=== PATIENT | male | born 1940 | race Two or more races ===

== ENCOUNTER 2019-12-16 10:30 | Outpatient (CLI) | payer MEDICARE ==
[~2019-12-16 10:30] MED LIST: NONE PER PT
[2019-12-16] MEDS ORDERED: REGADENOSON 0.4 MG/5 ML SYRINGE ONE (12:42)
== END 2019-12-16 23:59 | disposition home or self-care (01) ==
LOC: CVU 10:30 → RAD 23:59
PROVIDERS: ATTEND Internal Medicine Clinical Cardiac Electrophysiology
DX: I08.0 Rheumatic disorders of both mitral and aortic valves (principal); Z01.810 Encounter for preprocedural cardiovascular examination; R01.1 Cardiac murmur, unspecified; I10 Essential (primary) hypertension
CPT/HCPCS: 93306; 93356; J2785

== ENCOUNTER → 2020-03-01 | Outpatient (CLI) | payer MEDICARE | END | disposition home or self-care (01) | LOC: CFH 08:23 | PROVIDERS: ATTEND Nurse Practitioner | DX: M12.871 Other specific arthropathies, not elsewhere classified, right ankle and foot (principal); M25.571 Pain in right ankle and joints of right foot ==

== ENCOUNTER → 2020-03-31 | Outpatient (CLI) | payer MEDICARE ==
[~2020-03-31] MED LIST changes: +B CO1TAB14 PO; +GUAI-103 PO; +IRON18TA PO; +MAGN500C9 PO; +METF500T17 PO; +MULT-717 PO; +TURM500C4 PO
[2020-03-31 09:39] LABS: ALANINE AMINOTRANSFERASE 26 U/L (12-78); ALBUMIN 3.7 g/dL (3.4-5.0); ANION GAP 6 mmol/L (5-15); CALCIUM 8.9 mg/dL (8.5-10.1); CHLORIDE 108 mmol/L (98-107); CREATININE 0.81 mg/dL (0.7-1.3)
[2020-03-31 09:42] LABS: ALKALINE PHOSPHATASE 76 U/L (45-117); BILIRUBIN,TOTAL 0.6 mg/dL (0.2-1.0); TOTAL PROTEIN 7.4 g/dL (6.4-8.2)
== END | disposition home or self-care (01) ==
LOC: STAR 07:59
PROVIDERS: ATTEND Orthopaedic Surgery Foot and Ankle Surgery
DX: Z01.812 Encounter for preprocedural laboratory examination (principal); Z20.828 Contact with and (suspected) exposure to other viral communicable diseases; M25.571 Pain in right ankle and joints of right foot; M12.871 Other specific arthropathies, not elsewhere classified, right ankle and foot; R94.31 Abnormal electrocardiogram [ECG] [EKG]
CPT/HCPCS: 80053; 87635; 93005

== ENCOUNTER 2020-04-06 06:02 | Day surgery (SDC) | payer MEDICARE ==
[~2020-04-06] VITALS: Ht 177.8 cm; Wt 102.1 kg
[2020-04-06] MEDS ORDERED: CHLORHEXIDINE 15 ML UDC MM ONE (07:00)
[2020-04-06] MEDS ORDERED: LACTATED RINGERS 1,000 ML IV SCH (07:00)
[2020-04-06] MEDS ORDERED: OXYcodone 5 MG/5 ML ORAL.SOL UDC PO PRN (07:00)
[2020-04-06] MEDS ORDERED: LABETALOL 5MG/ML, 20ML IV PRN (07:00)
[2020-04-06] MEDS ORDERED: FENTANYL PF 100 MCG/2ML IV PRN (07:00)
[2020-04-06] MEDS ORDERED: PROMETHAZINE 25 MG/ML, 1ML IVPush PRN (07:00)
[2020-04-06] MEDS ORDERED: LIDOCAINE-MPF 1%, 2ML INFIL ONE (07:00)
[2020-04-06] MEDS ORDERED: EPHEDRINE 50 MG/ML, 1ML IVPush PRN (07:00)
[2020-04-06] MEDS ORDERED: ONDANSETRON 2MG/ML, 2ML IVPush PRN (07:00)
[2020-04-06] MEDS ORDERED: HYDROmorphone 1 MG/ML, 1ML INJ IVPush PRN (07:00)
[2020-04-06] MEDS ORDERED: ACETAMINOPHEN 500 MG TABLET PO ONE (07:00)
[2020-04-06] MEDS ORDERED: hydrALAzine 20 MG/ML, 1ML IV PRN (07:00)
[2020-04-06] MEDS ORDERED: LIDOCAINE/PF 1%, 30ML ONE (07:42)
[2020-04-06] MEDS ORDERED: FENTANYL PF 100 MCG/2ML ONE ×2 (08:03→08:14)
[2020-04-06] MEDS ORDERED: DEXAMETHASONE 4 MG/ML, 5ML ONE (08:12)
[2020-04-06] MEDS ORDERED: ONDANSETRON 2MG/ML, 2ML ONE (08:13)
[2020-04-06] MEDS ORDERED: PROPOFOL 10 MG/ML, 20ML ONE (08:13)
[2020-04-06] MEDS ORDERED: CEFAZOLIN 1,000 MG ONE ×2 (08:13)
[2020-04-06] MEDS ORDERED: LIDOCAINE-MPF 2% ,5ML ONE (08:13)
[2020-04-06] MEDS ORDERED: SODIUM CHLORIDE 0.9% PF 10ML ONE (08:13)
[2020-04-06] MEDS ORDERED: TRANEXAMIC ACID 100 MG/ML, 10ML ONE (09:49)
[2020-04-06] MEDS ORDERED: KETOROLAC 30 MG/1 ML ONE (10:39)
[2020-04-06] MEDS ORDERED: KETOROLAC 30 MG/1 ML IVPush SCH (11:00)
== END 2020-04-06 12:10 | disposition home or self-care (01) ==
LOC: OUT 06:02
PROVIDERS: ATTEND Orthopaedic Surgery Foot and Ankle Surgery
DX: S92.001A Unspecified fracture of right calcaneus, initial encounter for closed fracture (principal); M19.171 Post-traumatic osteoarthritis, right ankle and foot; M65.871 Other synovitis and tenosynovitis, right ankle and foot; M21.6X1 Other acquired deformities of right foot; M25.771 Osteophyte, right ankle; G89.18 Other acute postprocedural pain; E11.9 Type 2 diabetes mellitus without complications; I10 Essential (primary) hypertension; H40.9 Unspecified glaucoma; Z79.84 Long term (current) use of oral hypoglycemic drugs; Z79.899 Other long term (current) drug therapy; Z87.891 Personal history of nicotine dependence; Z88.5 Allergy status to narcotic agent; Z88.6 Allergy status to analgesic agent; Z88.8 Allergy status to other drugs, medicaments and biological substances; W11.XXXA Fall on and from ladder, initial encounter; Y93.89 Activity, other specified; Y92.89 Other specified places as the place of occurrence of the external cause; Y99.8 Other external cause status
CPT/HCPCS: 20902; 27640; 27687; 28120; 28725; 28740; 64415; 64447; 73630; 82962; C1713; C1762; J0690; J1100; J1885; J2405; J2704; J3010; J7120; 76000